=== PATIENT | male | born 1965 | race Caucasian/White ===

== ENCOUNTER 2018-12-08 21:59 | Inpatient (IN) | payer BC ==
[~2018-12-08] VITALS: Ht 182.9 cm; Wt 87.1 kg
--- NOTE | 2018-12-08 22:10 | NUR ---
Patient ambulated with stable gait. Speech clear, speaks in complete sentences. No neuro deficits A/0x4. Patient came for c/o left flank pain 10/10 [employer]. Respiratory even and unlabored, no cough no sob. No cardiovascular distress noted, all pulses palpable. Patient in bed at lowest position, sr upx2, call light within reach. Fall precautions implemented per protocol.
[2018-12-08] MEDS ORDERED: KETOROLAC TROMETHAMINE 30 MG INJ IVP ONE (22:30)
[2018-12-08] MEDS ORDERED: IV NORMAL SALINE 1000 ML BAG IV ONE (22:30)
[2018-12-08] MEDS ORDERED: KETOROLAC TROMETHAMINE 30 MG INJ ONE (22:31)
[2018-12-08 22:38] LABS: BASOPHILS % (AUTO) 0.5 % (0.0-2.0); EOSINOPHILS % (AUTO) 0.6 % (0.0-7.0); HEMATOCRIT 40.5 % (36.7-47.1); LYMPHOCYTES # (AUTO) 1.7 K/uL (20.0-40.0); LYMPHOCYTES % (AUTO) 38.1 % (20.5-51.5); MEAN CORPUSCULAR HEMOGLOBIN 32.3 uug (23.8-33.4); MEAN CORPUSCULAR HGB CONC 35 g/dL (32.5-36.3); MEAN CORPUSCULAR VOLUME 93.4 fL (73.0-96.2); MONOCYTES # (AUTO) 0.7 K/uL (2.0-10.0); MONOCYTES % (AUTO) 15.3 % (0.0-11.0); NEUTROPHILS % (AUTO) 45.5 % (38.5-71.5); PLATELET COUNT (AUTO) 149 K/uL (152-348); RED BLOOD CELL COUNT(AUTO) 4.34 MIL/uL (4.06-5.63); WHITE BLOOD COUNT (AUTO) 4.5 K/uL (3.6-10.2)
[2018-12-08 22:40] LABS: POTASSIUM 3.7 mmol/L (3.5-5.1)
[2018-12-08 22:45] LABS: BILIRUBIN,DIRECT 0.1 mg/dL (0.0-0.2); BILIRUBIN,TOTAL 0.6 mg/dL (0.2-1.0); TOTAL PROTEIN, SERUM 6.5 g/dL (6.4-8.2)
[2018-12-08 23:09] LABS: EOSINOPHILS % (MANUAL) 2 % (0-8); LYMPHOCYTES % (MANUAL) 49 % (20-40); MONOCYTES % (MANUAL) 13 % (2-10); NEUTROPHILS % (MANUAL) 33 % (42-75)
[2018-12-08 23:22] LABS: *BILIRUBIN,URIN NEGATIVE (NEGATIVE); *BLOOD, URINE NEGATIVE (NEGATIVE); *CLARITY,URINE CLEAR (CLEAR); *COLOR,URINE YELLOW (YELLOW); *KETONES,URINE NEGATIVE (NEGATIVE); *UROBILINOGEN,URINE 0.2 E.U./dl (NORMAL); LEUKOCYTE ESTERASE ,URINE NEGATIVE (NEGATIVE); NITRITE, URINE NEGATIVE (NEGATIVE); PH,URINE 5.5 (5.0-8.0); UGLUCOSE NEGATIVE (NEGATIVE)
[2018-12-09] MEDS ORDERED: IV NORMAL SALINE 1000 ML BAG IV ONE
[2018-12-09] MEDS ORDERED: HYDROMORPHONE 1 MG/1 ML DISP.SYRIN ONE ×2 (00:03→01:18)
[2018-12-09] MEDS ORDERED: ONDANSETRON 4 MG/2 ML VIAL ONE ×2 (00:04→02:44)
[2018-12-09] MEDS ORDERED: TAMSULOSIN HCL 0.4 MG CAP.SR.24H ONE (00:13)
[2018-12-09] MEDS ORDERED: TAMSULOSIN HCL 0.4 MG CAP.SR.24H PO ONE (00:15)
[2018-12-09] MEDS ORDERED: HYDROMORPHONE 1 MG/1 ML DISP.SYRIN IV ONE ×3 (01:15→03:15)
--- NOTE | 2018-12-09 02:20 | NUR ---
Patient got up to ambulate to the restroom, patient denies any pain. Pain 0/10.
[2018-12-09] MEDS ORDERED: OXYCODONE/APAP 5-325 MG TABLET ONE (02:44)
[2018-12-09] MEDS ORDERED: ONDANSETRON 4 MG/2 ML VIAL IV ONE ×2 (02:45)
[2018-12-09] MEDS ORDERED: OXYCODONE/APAP 5-325 MG TABLET PO ONE (02:45)
[2018-12-09] MEDS ORDERED: AMLO5TAB4 PO (03:28)
--- NOTE | 2018-12-09 03:50 | NUR ---
Report given to KENRICK Marquez. Patient transfered to [facility] in stable condition.
--- NOTE | 2018-12-09 04:05 | NUR ---
Received patient awake, alert, oriented x4, ambulatory. Patient not in any form of distress. Admitted for intractable pain, at the moment pain is 1/10. Noted with IV access on right hand, 20g, patent and intact. Patient oriented to unit. Bed in low position, locked, side rails up x 2, call light within reach. Will continue to monitor for recurrence of pain.
--- NOTE | 2018-12-09 04:15 | NUR ---
Patient declined to change in to hospital gown and stated that only skin issue is a surgical scar from his spinal surgery. Noted no redness on both heels.
[2018-12-09 04:39] VITALS: BP 141/83
--- NOTE | 2018-12-09 04:45 | NUR ---
Called and spoke with Dr. Osullivan for admitting orders.
[2018-12-09] MEDS ORDERED: ACETAMINOPHEN 325 MG TABLET PO PRN (05:00)
[2018-12-09] MEDS ORDERED: HYDROCODONE/APAP 5-325MG TABLET PO PRN (05:00)
[2018-12-09] MEDS ORDERED: MAGNESIUM HYDROXIDE 30 ML LIQUID UDC PO PRN (05:00)
[2018-12-09] MEDS ORDERED: ZOLPIDEM 5 MG TABLET PO PRN (05:00)
[2018-12-09] MEDS ORDERED: Z GUARD REMEDY PASTE 57 GM TUBE TOP PRN (05:00)
[2018-12-09] MEDS ORDERED: ONDANSETRON 4 MG/2 ML VIAL IV PRN (05:00)
[2018-12-09 11:09] VITALS: BP 154/82
[2018-12-09] MEDS ORDERED: TAMSULOSIN HCL 0.4 MG CAP.SR.24H PO SCH (12:30)
[2018-12-09] MEDS ORDERED: AMLODIPINE 5 MG TABLET PO SCH (12:30)
[2018-12-09 12:32] VITALS: BP 154/82
--- NOTE | 2018-12-09 13:00 | NUR ---
D/C ORDERS RECEIVED NOTED AND CARRIED OUT,D/C [place] PER MD ORDERS,D/C INSTRUCTION AND EDUCATION GIVEN TO THE PT.PT LEFT THE FACILITY VIA PRIVATE CAR INSTABLE CONDITION
== END 2018-12-09 13:00 | disposition home or self-care (01) | DRG 694 ==
LOC: ER 22:00 → MEDSURG3 12-09 04:02
PROVIDERS: ATTEND Nurse Practitioner Acute Care
DX: N13.2 Hydronephrosis with renal and ureteral calculous obstruction (principal); J98.11 Atelectasis; D69.6 Thrombocytopenia, unspecified; R91.1 Solitary pulmonary nodule; K57.30 Diverticulosis of large intestine without perforation or abscess without bleeding; K76.0 Fatty (change of) liver, not elsewhere classified; K42.9 Umbilical hernia without obstruction or gangrene; I10 Essential (primary) hypertension; I25.10 Atherosclerotic heart disease of native coronary artery without angina pectoris; Z98.1 Arthrodesis status; Z84.1 Family history of disorders of kidney and ureter; F17.220 Nicotine dependence, chewing tobacco, uncomplicated
CPT/HCPCS: 36415; 71045; 85025; 93005; A4663; G0378; J1170; J1885; J2405; J7030